=== PATIENT | female | born 1970 | race Caucasian/White ===

== ENCOUNTER 2024-01-29 09:28 | Outpatient (AMB) | payer BC, SELFPAY ==
--- NOTE | 2024-01-29 09:30 | MHC.PC.OV ---
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 Intake Note: New patient visit Machine Featheredger And Reducer Required: No Allergies dairy cultures Allergy (Unknown, Uncoded 01/29/24 09:31) Unknown diary Allergy (Unknown, Uncoded 01/29/24 09:31) Unknown Tobacco use date assessed: 01/29/24 Dental Screening Dental Screen Date: 01/29/24 Did you have a dental visit in the last 12 months?: Yes Did you have a dental problem in the last 6 months where you did not have access to dental care?: No Was dental information given to patient?: Patient has dentist HPI HPI Comments History of Present Illness Details The patient is a 53-year-old female presenting to establish care at the office. She transferred from my panel at [facility]. Regarding the recurrent skin cyst, the patient reports experiencing episodes intermittently over many years, with the current instance persisting for four days. Past interventions have included antibiotic treatment. There has been no indication of significant discharge at this time, but it remains uncomfortable, particularly when sitting. For sinus issues, the patient has experienced congestion and sinus infections (1 this year), with symptom exacerbation during periods of heightened allergies. She has been utilizing Zyrtec and Flonase intermittently for relief, though not concurrently. Hypertension is treated with amlodipine 5 mg daily. She has been using more sodium, and she admits she is not exercising. She has dense breast tissue that required additional mammography and ultrasound; a bilateral breat biopsy subsequently confirmed no malignancy. Past medical evaluations for the left arm lipoma revealed benign findings following removal. Patient has a history of hypothyroidism, but her TSH remained normal after stopping her medication more than a year ago. Patient was informed and verbally consented to the use of an ambient scribe for clinic note documentation during this visit. ROS: - General: Reports no general symptoms such as fever. - Dermatologic: Reports recurrent skin cyst with occasional discharge. - Respiratory: Reports nasal congestion and previous upper respiratory infection. - Musculoskeletal: Denies new joint pain or stiffness. - Cardiovascular: Denies chest pain or unusual dyspnea. 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 Constitutional: Alert, in no distress. Head: Normocephalic. Eyes: Pupils are equal, round and reactive to light. Extraocular muscles intact. Ear, Nose and Throat: Canals clear. TMs normal. Nasal mucosa mildly erythematous, inferior turbinates 2+ bilaterally. Neck: Supple, Full range of motion. No lymphadenopathy. Respiratory: Clear to auscultation. Cardiovascular: S1 S2 regular. No murmurs. Skin: mildly erythemaotus 1 cm cyst with pustular center on left buttock. Tender to palpation. [facility] Medical History (Updated 01/29/24 @ 10:30 by RINKU Dickerson) Dense breast tissue Infected cyst of skin Allergic rhinitis Hypothyroid Screening for cardiovascular condition Essential hypertension H/O mammogram Surgical History (Updated 01/29/24 @ 10:32 by RINKU Dickerson) History of biopsy History of colonoscopy Family History (Updated 01/29/24 @ 09:50 by Karin Hallman CMA) Mother Alzheimers disease Breast cancer Diabetes Heart disease HTN (hypertension) Mental disability Maternal Grandmother Alzheimers disease HTN (hypertension) Brother TBI (traumatic brain injury) Other FH: mental illness Social History (Updated 01/29/24 @ 09:50 by Karin Hallman CMA) Housing: House Alcohol intake: current Comment: rarely Patient Tobacco Use Status: Current everyday Tobacco user Cigarette Packs Per Day: 0.5 Years Smoked: 30 e-Cigarette/Vaping Use: Never Used Second Hand Smoke Exposure: No service: Yes Current occupational status: employed 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 1. Little interest or pleasure in doing things: not at all 2. Feeling down, depressed, or hopeless: not at all 3. Trouble falling or staying asleep, or sleeping too much: not at all 4. Feeling tired or having little energy: not at all 5. Poor appetite or overeating: not at all 6. Feeling bad about yourself - or that you are a failure or have let yourself or your family down: not at all 7. Trouble concentrating on things, such as reading the newspaper or watching television: not at all 8. Moving or speaking so slowly that other people could have noticed. Or the opposite - being so fidgety or restless that you have been moving around a lot more than usual: not at all 9. Thoughts that you would be better off or of hurting yourself in some way: not at all Total score: 0 Depression Screening Interpretation: Negative Depression Screening Done: Yes 22803 - PHQ-9 Billing: Yes Source: Developed by Drs. Everette Childress, Celena Kowalski, Javan Merino and colleagues, with an educational angus from [employer]. Thrive Questionnaire Date Thrive assessed: 01/29/24 I am a: Patient What is your living situation today?: I have a steady place to live Within the past 12 months, did the food you bought not last and you didn't have the money to get more?: Never true Within the past 12 months, did you worry whether your food would run out before you got money to buy more?: Never true Do you have trouble paying for medicines?: No Do you have trouble getting transportation to medical appointments?: No Do you have trouble paying your heating and electricity bill?: No Do you have trouble taking care of your child, family member or friend?: No Do you have trouble with day-to-day activities such as bathing, preparing meals, shopping, managing finances, etc.?: No Are you currently unemployed and looking for a job?: No Are you interested in more education?: No Please select the resources that you would like help with: None Currently or been in a relationship where the following occur: No concerns reported THRIVE Score: 0 AUDIT C Alcohol Use Questionnaire (AUDIT-C) 1. How often do you have a drink containing alcohol?: Monthly or less 2. How many drinks containing alcohol do you have on a typical day when you are drinking?: 1 or 2 3. How often do you have six or more drinks on one occasion?: Never Total Score: 1 ANNETTA-7 AMB Questionnaire ANNETTA-7 Date ANNETTA - 7 assessed: 01/29/24 Feeling nervous, anxious, or on edge: 0 = Not at all Not being able to stop or control worryin = Not at all Worrying too much about different things: 0 = Not at all Trouble relaxin = Not at all Being so restless that it is hard to sit still: 0 = Not at all Becoming easily annoyed or irritable: 0 = Not at all Feeling afraid as if something awful might happen: 0 = Not at all Total ANNETTA-7 score (0-4 normal; 5-9 mild; 10-14 moderate; 15-21 severe): 0 Source: Developed by Drs. Everette Childress, Celena Kowalski, Javan Merino and colleagues, with an educational angus from [employer]. ANNETTA-7 Assessment Billing ANNETTA-7 Assessment Tool: ANNETTA-7 Assessment 62069 Physical exam (Primary Care) Vital Signs: Last Vital Signs Pulse 104 H 01/29/24 09:50 BP 118/80 01/29/24 09:50 Pulse Ox 95 01/29/24 09:50 Oxygen Delivery Method Room Air 01/29/24 09:50 BMI result Body Mass Index 20.6 Tobacco/Smoking Status: Tobacco use Status Tobacco use date assessed 01/29/24 01/29/24 09:38 Patient Tobacco Use Status Current everyday Tobacco 01/29/24 09:53 e-Cigarette/Vaping Use Never Used 01/29/24 09:50 PHQ-9: PHQ-9 Score PHQ-9: Total score 0 01/29/24 10:14 Depression Screening Interpretation: Negative Thrive Assessment: Date of Thrive Assessment Date Thrive assessed 01/29/24 01/29/24 09:38 Currently or been in a relationship where the following occur: No concerns reported Coding Level of Care Code Est Pt Level 4 (28408) Complex EM visit Add On G2211 Diagnoses 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 (2) Essential hypertension: Code(s): I10 - Essential (primary) hypertension Category: Medical (3) Infected cyst of skin: Code(s): L72.9 - Follicular cyst of the skin and subcutaneous tissue, unspecified; L08.9 - Local infection of the skin and subcutaneous tissue, unspecified Category: Medical (4) Allergic rhinitis: Code(s): J30.9 - Allergic rhinitis, unspecified Category: Medical (5) Dense breast tissue: Code(s): R92.30 - Dense breasts, unspecified Category: Medical Plan 1. Essential Hypertension: Blood pressure is well-controlled on current medication. The patient is instructed to continue the antihypertensive regimen, with mindfulness towards dietary sodium reduction. 2. Recurrent Skin Cyst: Recurrence of skin cyst of left buttock being managed with doxycycline. Advised to complete the course. Referral placed for dermatologic consultation for cyst removal and skin exam. 3. Allergic rhinitis: Continue current management with Zyrtec and Flonase for symptomatic relief. Emphasized using both medications concurrently during periods of significant allergic response. Consideration for allergen testing and possible wrapping checker referral discussed. 4. Dense Breast Tissue: Previous mammogram, ultrasound, and biopsy evaluations confirmed negative for malignancy. Continue routine surveillance. Follow up in 6 months for a physical exam. Orders: Orders TSH reflex Free T4 Today E03.9 - Hypothyroidism, unspecified, I10 - Essential (primary) hypertension, J30.9 - Allergic rhinitis, unspecified, Z13.6 - Encounter for screening for cardiovascular disorders Complete Blood Count no Diff Today E03.9 - Hypothyroidism, unspecified, I10 - Essential (primary) hypertension, J30.9 - Allergic rhinitis, unspecified, Z13.6 - Encounter for screening for cardiovascular disorders Lipid Panel Today E03.9 - Hypothyroidism, unspecified, E78.5 - Hyperlipidemia, unspecified, I10 - Essential (primary) hypertension, J30.9 - Allergic rhinitis, unspecified, Z13.6 - Encounter for screening for cardiovascular disorders Comprehensive Met. Panel Today E03.9 - Hypothyroidism, unspecified, I10 - Essential (primary) hypertension, J30.9 - Allergic rhinitis, unspecified, Z13.6 - Encounter for screening for cardiovascular disorders Referrals Dermatology Referral Z12.83 - Encounter for screening for malignant neoplasm of skin Medications: New doxycycline hyclate 100 mg PO BID 20 tabs 0RF amlodipine 5 mg PO DAILY 90 tabs 3RF Patient Instructions: Diary free Culturelle daily probiotic
[2024-01-29 09:50] VITALS: BP 118/80; PULSE 104; O2SAT 95; BMI 20.6
== END 2024-01-29 10:25 | disposition home or self-care (01) ==
PROVIDERS: PCP Physician Assistant Medical; Visit Provider Physician Assistant Medical
DX: E06.3 Autoimmune thyroiditis (principal); I10 Essential (primary) hypertension; L72.9 Follicular cyst of the skin and subcutaneous tissue, unspecified; L08.9 Local infection of the skin and subcutaneous tissue, unspecified; J30.9 Allergic rhinitis, unspecified; R92.30 Dense breasts, unspecified

== ENCOUNTER → 2024-01-29 09:28 | Outpatient (BNVA) | payer BC, SELFPAY | PROVIDERS: PCP Physician Assistant Medical; Visit Provider Physician Assistant Medical | DX: E06.3 Autoimmune thyroiditis (principal); I10 Essential (primary) hypertension; L72.9 Follicular cyst of the skin and subcutaneous tissue, unspecified; L08.9 Local infection of the skin and subcutaneous tissue, unspecified; J30.9 Allergic rhinitis, unspecified; R92.30 Dense breasts, unspecified | CPT/HCPCS: 96127 ==

== ENCOUNTER 2024-05-02 08:38 | Outpatient (AMB) | payer BC, OTHER, SELFPAY ==
--- NOTE | 2024-05-02 08:53 | AM.OFFWIN_ITS ---
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 Patient Tobacco Use Status: Current everyday Tobacco user Allergies dairy cultures Allergy (Unknown, Uncoded 05/02/24 08:56) Unknown diary Allergy (Unknown, Uncoded 05/02/24 08:56) Unknown Do you need a note to return to daycare/school/sports/work: Yes HPI HPI Comments History of Present Illness Details 54 y/o female patient who presents to [facility] walk in clinic with c/o chest tightness, post nasal drip, runny nose, sneezing and coughing that started Monday. [facility] Medical History (Updated 05/02/24 @ 09:11 by Linda Nelson NP) Acute respiratory disease Dense breast tissue Infected cyst of skin Allergic rhinitis Hypothyroid Screening for cardiovascular condition Essential hypertension H/O mammogram Surgical History (Updated 01/29/24 @ 10:32 by RINKU Dickerson) History of biopsy History of colonoscopy Family History (Updated 01/29/24 @ 09:50 by Karin Hallman CMA) Mother Alzheimers disease Breast cancer Diabetes Heart disease HTN (hypertension) Mental disability Maternal Grandmother Alzheimers disease HTN (hypertension) Brother TBI (traumatic brain injury) Other FH: mental illness Social History (Updated 01/29/24 @ 09:50 by Krain Hallman CMA) Housing: House Alcohol intake: current Comment: rarely Patient Tobacco Use Status: Current everyday Tobacco user Cigarette Packs Per Day: 0.5 Years Smoked: 30 e-Cigarette/Vaping Use: Never Used Second Hand Smoke Exposure: No service: Yes Current occupational status: employed 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 Current occupational exposures/hazards: No Cognitive needs: No Hearing needs: No Vision needs: Yes (glasses) Review of Systems Const All systems reviewed & are unremarkable except as noted in HPI and below Physical Exam Vital Signs: Last Vital Signs Temp 98.1 F 05/02/24 08:55 Pulse 110 H 05/02/24 08:55 BP 118/70 05/02/24 08:55 Pulse Ox 99 05/02/24 08:55 Oxygen Delivery Method Room Air 05/02/24 08:55 Const General: cooperative and no acute distress Orientation/consciousness: patient oriented x3 HEENT Head: Yes normocephalic Ears: external ears normal and TM abnormal with fluid behind the TM bilateral General nose exam: No nasal discharge present Face and sinus: Yes sinuses nontender Mouth: moist mucous membranes Throat: Yes postnasal drainage Resp Effort & Inspection: normal respiratory effort and able to speak in complete sentences Auscultation: clear to auscultation bilaterally, no crackles, no rales, no rhonchi and no wheezes Cardio Heart sounds: S1 normal heart sound present and S2 normal heart sound present Neuro General: patient oriented x3 Assessment & Plan Assessment & Plan (1) Acute respiratory disease: Code(s): J06.9 - Acute upper respiratory infection, unspecified Plan: OTC cough remedies Ordered SARs Acetaminophne for pain relief. Rest and hydrate well with warm fluids. Orders: Orders SARS-CoV2/FLU/RSV Today J06.9 - Acute upper respiratory infection, unspecified Medications: New benzonatate 200 mg (2 x 100 mg) PO BID 60 caps 0RF J06.9 - Acute upper re spiratory infection, unspecified dextromethorphan-guaifenesin 5-100 mg/5 mL (Robitussin Cough-Chest Congestion DM) 10 mL PO Q4-8H PRN 1,000 mL 0RF cough J06.9 - Acute upper respiratory infection, unspecified Coding Level of Care Code New Pt Level 4 (10221) Diagnoses Acute respiratory disease J06.9 Time Spent (min) 20
[2024-05-02 08:55] VITALS: BP 118/70; PULSE 110; TEMP 36.7; O2SAT 99
== END 2024-05-02 09:25 | disposition home or self-care (01) ==
PROVIDERS: PCP Physician Assistant Medical; Visit Provider Nurse Practitioner Family
DX: J06.9 Acute upper respiratory infection, unspecified (principal)

== ENCOUNTER 2024-05-02 08:38 | Outpatient (REF) | payer BC, OTHER, SELFPAY ==
[2024-05-02 11:33] LABS: Influenza A PCR NEGATIVE (Negative); Influenza B PCR NEGATIVE (Negative); Resp Syncy Virus RNA Qual PCR NEGATIVE (Negative); SARS COV2 PCR INHOUSE NEGATIVE (Negative)
== END 2024-05-02 08:39 | disposition home or self-care (01) ==
LOC: HO.LAB 08:38
PROVIDERS: PCP Physician Assistant Medical; Visit Provider Nurse Practitioner Family
DX: J06.9 Acute upper respiratory infection, unspecified (principal)
CPT/HCPCS: 0241U

== ENCOUNTER 2024-07-08 08:35 | Outpatient (REF) | payer BC, OTHER, SELFPAY ==
[2024-07-08 10:38] LABS: Hematocrit 37.8 % (37.0-47.0); Mean Corpuscular HGB Conc 31.7 g/dl (31.0-35.0); Mean Corpuscular Hemoglobin 27.1 pg (27.0-33.0); Mean Corpuscular Volume 85.5 fL (80.0-98.0); Mean Platelet Volume 12.6 fL (9.4-12.3); Platelet Count 364 X10*3/uL (160-400); Red Blood Count 4.42 X10*6/uL (4.20-5.50); Red Cell Distribution Width 14.7 % (11.0-16.0); White Blood Count 8.2 X10*3/uL (4.8-10.8)
[2024-07-08 11:02] LABS: Alanine Aminotransferase 15 U/L (0-31); Albumin Level 4.2 g/dL (3.5-5.0); Alkaline Phosphatase 139 U/L (39-117); Anion Gap 12 (12-20); Aspartate Amino Transferase 29 U/L (5-31); Bilirubin Total 0.4 mg/dL (0.0-1.0); Blood Urea Nitrogen 10 mg/dL (9-16); Calcium 9.7 mg/dL (8.4-10.2); Carbon Dioxide 26 mmol/L (22-29); Chloride 104 mmol/L (96-108); Cholesterol 206 mg/dL (<200); Estimated Glomerular Filt Rate > 60; Glucose Random 95 mg/dL (60-115); HDL Cholesterol 49 mg/dL (>40); LDL Cholesterol Calculated 124 mg/dL (<100); Potassium 4.4 mmol/L (3.3-5.1); Sodium 138 mmol/L (135-145); Total Protein 8.3 g/dL (6.5-8.0); Triglycerides 167 mg/dL (<150)
[2024-07-08 11:03] LABS: TSH reflex Free T4 8.76 uIU/mL (0.32-4.0)
[2024-07-08 12:58] LABS: Free T4 (Free Thyroxine) 0.97 ng/dL (0.71-1.85)
== END 2024-07-08 08:36 | disposition home or self-care (01) ==
LOC: HO.HMGCLDS 08:35
PROVIDERS: PCP Physician Assistant Medical; Visit Provider Physician Assistant Medical
DX: I10 Essential (primary) hypertension (principal); Z13.6 Encounter for screening for cardiovascular disorders; E03.9 Hypothyroidism, unspecified; J30.9 Allergic rhinitis, unspecified; E78.5 Hyperlipidemia, unspecified
CPT/HCPCS: 36415; 80053; 80061; 84439; 84443; 85027

== ENCOUNTER 2024-08-05 08:22 | Outpatient (AMB) | payer BC, OTHER, SELFPAY ==
--- NOTE | 2024-08-05 08:24 | A.OFFPC_ITS ---
Vital Signs 08/05/24 08:31 Height 5 ft 6.5 in Weight 124 lb 2 oz BMI 19.7 BP 106/68 Blood Pressure Location Rt brachial Position Sitting Pulse 86 Pulse Source Pulse Oximeter Temp 97.4 F Temp Source Temporal Artery Scan Pulse Oximetry (%) 99 Oxygen Delivery Method Room Air Intake Visit Reasons: CPE Intake Note: Kinza presents in the office today for her annual physical. Allergies Seasonal Allergies Allergy (Verified 08/05/24 08:29) Congestion dairy cultures Allergy (Unknown, Uncoded 08/05/24 08:29) Unknown diary Allergy (Unknown, Uncoded 05/02/24 08:56) Unknown Tobacco use date assessed: 08/05/24 Dental Screening Dental Screen Date: 08/05/24 Did you have a dental visit in the last 12 months?: Yes Did you have a dental problem in the last 6 months where you did not have access to dental care?: Yes Was dental information given to patient?: Patient has dentist HPI HPI Comments History of Present Illness Details The patient is a 54-year-old female with a past medical history of hypertension and hypothyroidism presenting for a physical exam. She is treating allergies with Zyrtec and Flonase which alleviate symptoms. Hypertension is treated with amlodipine 5 mg daily. This is well-controlled. She has dense breast tissue that required additional mammography and ultrasound; a bilateral breast biopsy subsequently confirmed no malignancy. She reports she is up to date with imaging at [facility]. She is up to with colonoscopy at at [facility]. It was normal, and she was told repeat this in ten years. Past medical evaluations for the left arm lipoma revealed benign findings fo llowing removal. Patient has a history of hypothyroidism, but her TSH remained normal after stopping her medication more than a year ago. Her TSH was elevated at 8.76 in June. She was instructed to repeat it. She endorses hair thinning for the past month. It is making her self-conscious. Patient's alkaline phosphatase was also mildly elevated at 139. AST and ALT normal. Free T4 normal. She does not take a multivitamin or vitamin-D supplement. She has been under more stress because she is planning to retire at the end of the month. She has smoked a half a pack per day for the past 30 years. She is not ready to quit yet, but she would like some thinks she can use when she goes to an event that does not allow smoking so she does not get nicotine withdrawal symptoms. ROS: Constitutional: No unexplained weight loss, fever, chills, fatigue or night sweats. Eyes: No vision changes, blurry vision, double vision, eye pain, eye redness, eye discharge. ENT: No hearing loss, sneezing, congestion, runny nose or sore throat. Respiratory: No shortness of breath, cough or sputum production. Cardiovascular: No chest pain, chest pressure or chest discomfort. No palpi tations or pedal edema. Gastrointestinal: No anorexia, nausea, vomiting or diarrhea. No abdominal pain or blood in stool. Genitourinary: No dysuria, hematuria, urinary frequency. Neurologic: No headache, dizziness, syncope, unilateral weakness, ataxia, numbness or tingling in the extremities. Musculoskeletal: No muscle pain, back pain, joint pain or swelling. Hematologic/Lymphatics: No bleeding or bruising. No painful lymph nodes. Skin: No rash Endocrine: No cold or heat intolerance. No polyuria or polydipsia. Psychiatric: No depression or anxiety. No SI/HI. Physical exam: Constitutional: Alert, in no distress. Head: Normocephalic. Eyes: Pupils are equal, round and reactive to light. Extraocular muscles intact. Ear, Nose and Throat: Canals clear. TMs normal. Normal nasal mucosa. No nasal discharge. No oral lesions. Neck: Supple, Full range of motion. No lymphadenopathy. No palpable thyroid masses. Respiratory: Clear to auscultation. Cardiovascular: S1 S2 regular. No murmurs. No carotid bruits. Gastrointestinal: Abdomen soft, non-tender, non-distended. Normal bowel sounds. No palpable masses. Neurologic: No focal neurological deficits. Symmetric patellar reflexes. Moves all extremities spontaneously. Sensation intact bilaterally. Skin: No rashes Scalp: No redness or rashes. Hair thinning at the crown. Musculoskeletal: No gross deformities. Normal range of motion. Extremities: Warm and well perfused. No clubbing, cyanosis or edema. Intact peripheral pulses bilaterally. Psychiatric: Normal mood and affect [facility] Medical History (Updated 08/05/24 @ 09:12 by RINKU Dickerson) Tobacco use disorder Routine physical examination Familial tremor Elevated alkaline phosphatase level Acute respiratory disease Dense breast tissue Infected cyst of skin Allergic rhinitis Hypothyroid Screening for cardiovascular condition Essential hypertension H/O mammogram Surgical History (Updated 01/29/24 @ 10:32 by RINKU Dickerson) History of biopsy History of colonoscopy Family History Mother Alzheimers disease Breast cancer Diabetes Heart disease HTN (hypertension) Mental disability Maternal Grandmother Alzheimers disease HTN (hypertension) Brother TBI (traumatic brain injury) Other FH: mental illness Social History (Updated 08/05/24 @ 08:31 by Joleen Donohue MA) Housing: House Alcohol intake: current Comment: rarely Patient Tobacco Use Status: Current everyday Tobacco user Cigarette Packs Per Day: 0.5 Years Smoked: 30 e-Cigarette/Vaping Use: Never Used Second Hand Smoke Exposure: No service: Yes Current occupational status: employed 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 1. Little interest or pleasure in doing things: not at all 2. Feeling down, depressed, or hopeless: not at all 3. Trouble falling or staying asleep, or sleeping too much: several days 4. Feeling tired or having little energy: several days 5. Poor appetite or overeating: not at all 6. Feeling bad about yourself - or that you are a failure or have let yourself or your family down: not at all 7. Trouble concentrating on things, such as reading the newspaper or watching television: not at all 8. Moving or speaking so slowly that other people could have noticed. Or the opposite - being so fidgety or restless that you have been moving around a lot more than usual: not at all 9. Thoughts that you would be better off or of hurting yourself in some way : not at all Total score: 2 Depression Screening Interpretation: Negative Depression Screening Done: Yes 94826 - PHQ-9 Billing: Yes Source: Developed by Drs. Everette Childress, Celena Kowalski, Javan Merino and colleagues, with an educational angus from [employer]. Thrive Questionnaire Date Thrive assessed: 08/05/24 I am a: Patient What is your living situation today?: I have a steady place to live Within the past 12 months, did the food you bought not last and you didn't have the money to get more?: Never true Within the past 12 months, did you worry whether your food would run out before you got money to buy more?: Never true Do you have trouble paying for medicines?: No Do you have trouble getting transportation to medical appointments?: No Do you have trouble paying your heating and electricity bill?: No Do you have trouble taking care of your child, family member or friend?: No Do you have trouble with day-to-day activities such as bathing, preparing meals, shopping, managing finances, etc.?: No Are you currently unemployed and looking for a job?: No Are you interested in more education?: No Please select the resources that you would like help with: None Currently or been in a relationship where the following occur: No concerns reported THRIVE Score: 0 AUDIT C Alcohol Use Questionnaire (AUDIT-C) 1. How often do you have a drink containing alcohol?: 2-4 times a month 2. How many drinks containing alcohol do you have on a typical day when you are drinking?: 1 or 2 3. How often do you have six or more drinks on one occasion?: Never Total Score: 2 ANNETTA-7 AMB Questionnaire ANNETTA-7 Date ANNETTA - 7 assessed: 08/05/24 Feeling nervous, anxious, or on edge: 1 = Several days Not being able to stop or control worryin = Not at all Worrying too much about different things: 0 = Not at all Trouble relaxin = Not at all Being so restless that it is hard to sit still: 0 = Not at all Becoming easily annoyed or irritable: 0 = Not at all Feeling afraid as if something awful might happen: 0 = Not at all Total ANNETTA-7 score (0-4 normal; 5-9 mild; 10-14 moderate; 15-21 severe): 1 Source: Developed by Drs. Everette Childress, Celena Kowalski, Javan Merino and colleagues, with an educational angus from [employer]. ANNETTA-7 Assessment Billing ANNETTA-7 Assessment Tool: ANNETTA-7 Assessment 94729 Physical exam (Primary Care) Vital Signs: Last Vital Signs Temp 97.4 F 08/05/24 08:31 Pulse 86 08/05/24 08:31 BP 106/68 08/05/24 08:31 Pulse Ox 99 08/05/24 08:31 Oxygen Delivery Method Room Air 08/05/24 08:31 BMI result Body Mass Index 19.7 Tobacco/Smoking Status: Tobacco use Status Tobacco use date assessed 08/05/24 08/05/24 08:37 Patient Tobacco Use Status Current everyday Tobacco 08/05/24 08:31 e-Cigarette/Vaping Use Never Used 08/05/24 08:31 PHQ-9: PHQ-9 Score PHQ-9: Total score 2 08/05/24 08:25 Depression Screening Interpretation: Negative Thrive Assessment: Date of Thrive Assessment Date Thrive assessed 08/05/24 08/05/24 08:25 Currently or been in a relationship where the following occur: No concerns reported Coding Level of Care Code Est Pt Prev Care 40-64y(77229) Diagnoses Elevated alkaline phosphatase level R74.8 Essential hypertension 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 Check GGTP, alkaline phosphatase isoenzymes and vitamin-D. (2) Essential hypertension: Code(s): I10 - Essential (primary) hypertension Category: Medical Plan: Continue amlodipine. Recommended low-sodium diet, avoidance of caffeine and smoking cessation. 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 If this is still elevated recommend trial of levothyroxine given new symptom of hair thinning. (4) Tobacco use disorder: Code(s): F17.200 - Nicotine dependence, unspecified, uncomplicated Category: Medical Plan: She does not qualify for LDCT. Recommended smoking cessation, but she is not prepared to quit. I prescribed patches that she can use when she has an event where smoking is not allowed. Advised not to smoke cigarettes when she is using the patch. Side effects reviewed. (5) Routine physical examination: Code(s): Z00.00 - Encounter for general adult medical examination without abnormal findings Category: Medical Plan: Patient is seen today for a routine physical. As part of this visit we reviewed the following issues, which are considered and essential part of preventative health in this age group: - Breast Cancer screening - Annual Veterinary Radiologist exam - Screening for colon cancer - Blood pressure screening - Cholesterol screening - Osteoporosis prevention including calcium/vitamin D intake, weight bearing exercise & smoking cessation - Nutritional and exercise counseling - Counseling of injury prevention including fire prevention, smoke alarms and seat belt usage - Screening for depression - Education about skin cancer - Recommendations about immunizations - Recommendation of an eye exam - Screening for substance abuse Plan Follow up in 6 months for hypertension. Orders: Orders Gamma Glutamyl Transpeptidase Today R74.8 - Abnormal levels of other serum enzymes Medications: New nicotine (Nicoderm CQ) 1 patch transdermal DAILY 28 ea 0RF
[2024-08-05 08:31] VITALS: BP 106/68; PULSE 86; TEMP 36.3; O2SAT 99; BMI 19.7
== END 2024-08-05 09:09 | disposition home or self-care (01) ==
LOC: HO.HMCFM 08:23
PROVIDERS: PCP Physician Assistant Medical; Visit Provider Physician Assistant Medical
DX: R74.8 Abnormal levels of other serum enzymes (principal); I10 Essential (primary) hypertension; E06.3 Autoimmune thyroiditis; F17.200 Nicotine dependence, unspecified, uncomplicated; Z00.00 Encounter for general adult medical examination without abnormal findings

== ENCOUNTER → 2024-08-05 08:22 | Outpatient (BNVA) | payer BC, OTHER, SELFPAY | PROVIDERS: PCP Physician Assistant Medical; Visit Provider Physician Assistant Medical | DX: Z00.00 Encounter for general adult medical examination without abnormal findings (principal); R74.8 Abnormal levels of other serum enzymes; I10 Essential (primary) hypertension; E06.3 Autoimmune thyroiditis; F17.210 Nicotine dependence, cigarettes, uncomplicated; Z79.899 Other long term (current) drug therapy; Z13.31 Encounter for screening for depression; Z13.30 Encounter for screening examination for mental health and behavioral disorders, unspecified | CPT/HCPCS: 96127 ==

== ENCOUNTER 2024-08-05 09:21 | Outpatient (REF) | payer BC, OTHER, SELFPAY ==
[2024-08-05 11:39] LABS: Alkaline Phosphatase 142 U/L (39-117); Gamma Glutamyl Transpeptidase 50 U/L (7-33)
[2024-08-05 11:53] LABS: TSH reflex Free T4 6.13 uIU/mL (0.32-4.0)
[2024-08-05 12:42] LABS: Free T4 (Free Thyroxine) 0.97 ng/dL (0.71-1.85)
[2024-08-08 21:23] LABS: Alk.Phos Iso. Macrohepatic 0 % (<=0); Alk.Phos Isoenzymes Bone 53 % (28-66); Alk.Phos Isoenzymes Intest 6 % (1-24); Alk.Phos Isoenzymes Liver 41 % (25-69); Alk.Phos Isoenzymes Placental 0 % (<=0); Alk.Phos Isoenzymes Total 136 U/L (37-153)
[2024-08-10 16:07] LABS: Vitamin D 25-OH, D2 <4 ng/mL; Vitamin D 25-OH, D3 16 ng/mL; Vitamin D 25-OH, Total 16 ng/mL (30-100)
== END 2024-08-05 09:22 | disposition home or self-care (01) ==
LOC: HO.WFDLDS 09:21
PROVIDERS: Visit Provider Physician Assistant Medical
DX: R74.8 Abnormal levels of other serum enzymes (principal); E06.3 Autoimmune thyroiditis
CPT/HCPCS: 36415; 82306; 82977; 84075; 84080; 84439; 84443

== ENCOUNTER 2024-10-03 11:08 | Outpatient (REF) | payer BC, OTHER, SELFPAY ==
--- NOTE | ~2024-10-03 | US_ITS ---
EXAMINATION: US ABDOMEN LIMITED WITH LIVER ELASTOGRAPHY HISTORY: R74.8 - Abnormal levels of other serum enzymes TECHNIQUE: Real-time grayscale ultrasound imaging of the right upper quadrant was performed and images were reviewed. COMPARISON: There are no prior studies available for comparison. FINDINGS: Liver: The right lobe of the liver measures 13.0 cm in size. The left lobe of the liver measures 10.4 cm in size. The liver demonstrates normal homogeneous echotexture. No focal mass or intrahepatic biliary ductal dilatation is identified. There is normal hepatopedal flow in the portal vein. Ultrasound elastography of the liver was performed with 10 separate measurements of the liver parenchyma with the patient in the supine position. Measurements were obtained approximately 2 cm below Leonidas's capsule and perpendicular to the capsule. The median shear wave velocity is 1.36 m/s. The interquartile range/median (IQR/median) is 0.04. Gallbladder and biliary tree: Multiple shadowing calculi are noted in the gallbladder. There is no wall thickening or pericholecystic fluid. There is no sonographic Tinoco sign. The common bile duct is normal in caliber measuring 5 mm. Right Kidney: The right kidney measures 11.8 cm in length. The right kidney is unremarkable, without evidence of masses, hydronephrosis, or calculi. Pancreas: The pancreatic head, neck, and body are unremarkable. The pancreatic tail is obscured by bowel gas. Abdominal aorta and inferior vena cava: The visualized portions of the abdominal aorta and inferior vena cava are normal in caliber. There is no free fluid in the right upper quadrant. US/US abdomen house w elastography IMPRESSION: Cholelithiasis. Otherwise unremarkable right upper quadrant ultrasound. The median shear wave velocity in the liver is 1.36 m/s, corresponding to a median liver stiffness of 5.53 kPa. The IQR/median value is 0.06. This is indicative of a quality data set. Findings are indicative of a low elastography value which rules out advanced chronic liver disease in asymptomatic patients. REFERENCE: Society of Radiologists in Ultrasound Liver Stiffness Thresholds (2020): LIVER STIFFNESS THRESHOLDS: *Shear wave velocity less than 1.3 m/s (Liver Stiffness equal or less than 5 kPa): High probability of being normal. *Shear wave velocity less than 1.7 m/s (Liver Stiffness less than 9 kPa): In the absence of other known clinical signs, rules out compensated advanced chronic liver disease. *Shear wave velocity between 1.7-2.1 m/s (Liver Stiffness 9-13 kPa): Suggestive of compensated advanced chronic liver disease but need further test for confirmation. *Shear wave velocity between 2.1-2.4 m/s (Liver Stiffness 13-17 kPa): Rules in compensated advanced chronic liver disease. *Shear wave velocity greater than 2.4 m/s (Liver Stiffness over 17 kPa): Suggestive of clinically significant portal hypertension. QUALITY OF DATA SET: *IQR/Median value equal or less than 0.15 implies a quality data set. *IQR/Median value over 0.15 implies a poor quality data set. SIGNIFICANT CHANGE FROM PRIOR EXAM: Significant change if liver stiffness measurement is 10% or greater from prior exam. OTHER CONSIDERATIONS: The stage of liver fibrosis may be overestimated in the setting of acute hepatitis, liver inflammation, elevated liver function tests, hepatic vascular congestion, obstructive cholestasis, non-fasting state, and infiltrative diseases such as amyloidosis and lymphoma. In some patients with NAFLD, the liver stiffness thresholds for compensated advanced chronic liver disease may be lower. In causes other than viral hepatitis and NAFLD, liver stiffness thresholds are not well established. Electronically signed by: Everette Kent MD 10/03/2024 11:53 AM EDT
--- OUTSIDE RECORDS SUMMARY | 2024-10-03 12:16 | XMS_ITS | Clinical Summary ---
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 Not on alesia e 11/07/2022 Are you concerned about learning? Not on file 11/07/2022 No 11/07/2022 No 11/07/2022 Digital Access Answer Date Recorded No 11/07/2022 No 11/07/2022 Reliable internet access at home? Not on file 11/07/2022 Device with a working camera? Not on file Comments Unknown Sex and Gender Information Value Date Recorded Sex Assigned at Not on file Legal Sex Female 12:31 PM EDT Gender Identity Not on file Sexual Orientation Not on file Last Filed Vital Signs Vital Sign Reading Time Taken Comments Blood Pressure 136/88 11/07/2022 12:59 PM EDT Pulse 83 11/07/2022 12:59 PM EDT Temperature 37.2 C (98.9 F) 11/07/2022 12:59 PM EDT Respiratory Rate 16 11/07/2022 12:59 PM EDT Oxygen Saturation 99% 11/07/2022 12:59 PM EDT Inhaled Oxygen Concentration - - Weight 55.3 kg (122 lb) 11/07/2022 12:59 PM EDT per pt Height - - Body Mass Index - - Plan of Treatment Health Maintenance Due Date Last Done Comments LIPID PANEL 1970 DEPRESSION SCREENING 1982 SMOKING Hx and SMOKELESS TOBACCO SCREENING 1983 HEPATITIS C SCREENING 02/10/1988 HIV ONE-TIME SCREENING (18-6 5 YEARS) 02/10/1988 PNEUMOCOCCAL VACCINES (50+ years) (1 of 2 - PCV) 1989 PAP SMEAR 1991 MAMMOGRAM 2010 COLOGUARD 2015 COLONOSCOPY 2015 COLORECTAL CANCER SCREENING 2015 FIT TEST 2015 FOBT 2015 SIGMOIDOSCOPY 2015 VIRTUAL COLONOSCOPY 2015 ZOSTER VACCINES (1 of 2) 02/10/2020 COVID-19 VACCINE (4 - 2023-2 5 season) 2023 01/22/2021, 06/05/2020, 05/08/2020 Adult Td,Tdap Booster 02/20/2027 02/20/2017 HEPATITIS A VACCINES Aged Out No long er eligible based on patient's age to complete this topic HIB VACCINES Aged Out No longer eligi ble based on patient's age to complete this topic MENINGOCOCCAL VACCINES (ACWY) Aged Out No longer eligible based on patient's age to complete this topic MENINGOCOCCAL VACCINES (B) Aged Out N o longer eligible based on patient's age to complete this topic Medical Devices Not on file [place] [address] [place] [address] [place] [address] [place] [address] [place] [address] [place] [address] Care Teams Fat Purification 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 It is not the complete legal health record.Merged With [facility]
== END 2024-10-03 11:09 | disposition home or self-care (01) ==
LOC: HO.US 11:08
PROVIDERS: PCP Physician Assistant Medical; Visit Provider Physician Assistant Medical
DX: R74.8 Abnormal levels of other serum enzymes (principal)
CPT/HCPCS: 76705; 76981

== ENCOUNTER → 2024-10-03 11:10 | Outpatient (BNV) | payer BC, OTHER, SELFPAY | PROVIDERS: PCP Physician Assistant Medical; Visit Provider Radiology Diagnostic Radiology | DX: K80.80 Other cholelithiasis without obstruction (principal) | CPT/HCPCS: 76705 ==

== ENCOUNTER 2025-01-20 13:41 | Outpatient (AMB) | payer BC, OTHER, SELFPAY ==
--- NOTE | 2025-01-20 13:45 | MHC.PC.OV ---
Vital Signs 01/20/25 13:50 Height 5 ft 6.5 in Weight 127 lb 4 oz BMI 20.2 BP 112/62 Blood Pressure Location Rt brachial Position Sitting Respiration 16 Pulse 97 Pulse Source Pulse Oximeter Temp 98.5 F Temp Source Temporal Artery Scan Pulse Oximetry (%) 98 Oxygen Delivery Method Room Air Intake Visit Reasons: ED Follow-up /[facility] /01/11 Intake Note: Kinza presents in the office today for a ED follow up from 01/11/2025. Electrical Panel Builder Required: No Post menopausal: Yes Allergies Seasonal Allergies Allergy (Verified 01/20/25 13:48) Congestion dairy cultures Allergy (Unknown, Uncoded 01/20/25 13:48) Unknown diary Allergy (Unknown, Uncoded 01/20/25 13:48) Unknown Tobacco use date assessed: 01/20/25 Dental Screening Dental Screen Date: 01/20/25 Did you have a dental visit in the last 12 months?: Yes Did you have a dental problem in the last 6 months where you did not have access to dental care?: No Was dental information given to patient?: Patient has dentist HPI HPI Comments History of Present Illness Details 54-year-old female with a past medical history of vitamin-D deficiency, tobacco use disorder, hypothyroidism and hypertension presents for ER follow up. Her has been is with her. I reviewed emergency medicine records from 01/11/2025 at [facility] indicating patient may have had a vasovagal episode. She was brought in by ambulance from a hockey game for dizziness and possible syncope. She had not slept well the night before. She had not felt well during the day, and felt like a migraine was coming on so she took Excedrin. She was standing at the game when she began to feel overheated and dizzy. She sat down for a bit and then stood up again and felt dizzy again so she sat back down. She got tunnel vision, and she thinks she may have lost consciousness for a second (she does not recall her going to get help, but she did not actually fall). The episode lasted about 20 minutes and resolved. She noted she ate and drank normally that day though she does only drank coffee and soda. She consumed half a beer at the game. This has happened on 2 other occasions when she saw blood in the past. Her vitals were unremarkable aside from hypertension, 160/111. White blood cell count was mildly elevated at 12,800, hemoglobin 11.3, MCH 26.3, MCHC 31.3. Glucose normal at 115. Negative high sensitivity troponin. EKG showed normal sinus rhythm. She was discharged home. It has not happened again since. She denies chest pain, shortness of breath, palpitations, headaches, vision changes, numbness, tingling, weakness. Hypertension is treated with amlodipine 5 mg daily. Her blood pressure today is normal at 112/62. She has a history of low vypiael-N-bsm completed 12 week course in his taking 7200-4693 IU daily, but she does not take it consistently. Hypothyroidism is treated with levothyroxine 50 mcg daily. Last TSH was mildly elevated. She is due to repeat this. She has had nasal itching, runny nose and body itching that is more noticeable now that she is home all the time since group home. She has cats, and she is questioning whether or not she is allergic to them. She takes Zyrtec, but she has been on it for very long time. She takes Benadryl which alleviates symptoms temporarily. ROS: Constitutional: No unexplained weight loss, fever, chills, fatigue or night sweats. Eyes: No vision changes, blurry vision, double vision ENT: No hearing loss, tinnitus, sore throat, sinus pain. +rhinitis Respiratory: No shortness of breath, cough or sputum production. Cardiovascular: No chest pain, chest pressure or chest discomfort. No palpitations or pedal edema. Gastrointestinal: No anorexia, nausea, vomiting or diarrhea. No abdominal pain or blood in stool. Genitourinary: No dysuria, hematuria, urinary frequency. Neurologic: No headaches, seizures, speech changes, numbness, tingling, weakness are further episodes of near-syncope or syncope. There is a history of essential tremor. Hematologic/Lymphatics: No bleeding or bruising. Skin: No rash Endocrine: No cold or heat intolerance. No polyuria or polydipsia. Physical exam: Constitutional: Alert, in no distress. Eyes: Pupils are equal, round and reactive to light. Extraocular muscles intact. Ear, Nose and Throat: Canals clear. TMs normal. Normal nasal mucosa. No nasal discharge. No oral lesions. Neck: Supple, Full range of motion. No lymphadenopathy. No palpable thyroid masses. Respiratory: Clear to auscultation. Cardiovascular: S1 S2 regular. No murmurs. No carotid bruits. Gastrointestinal: Abdomen soft, non-tender, non-distended. Normal bowel sounds. No palpable masses. Neurologic:?Alert and oriented x 3, no focal deficits observed, CN 2-12 intact, [id number] normal, sensation equal and symmetric, strength UE and LE 5/5 bilaterally, reflexes equal and symmetric.? Normal gait.? Patient able to heel walk, toe walk and walk heel-to-toe across the floor.? No pronator drift.? Negative Romberg. Essential tremor noted. Skin: No rashes Musculoskeletal: No gross deformities. Normal range of motion. Extremities: Warm and well perfused. No clubbing, cyanosis or edema. Intact peripheral pulses bilaterally Psychiatric: Normal mood and affect [facility] Medical History (Updated 01/21/25 @ 09:01 by RINKU Dickerson) Vasovagal near-syncope Itch Gallstones Elevated serum gamma-glutamyl transferase level Vitamin D deficiency Tobacco use disorder Routine physical examination Familial tremor Elevated alkaline phosphatase level Acute respiratory disease Dense breast tissue Infected cyst of skin Allergic rhinitis Hypothyroid Screening for cardiovascular condition Essential hypertension H/O mammogram Surgical History (Updated 01/29/24 @ 10:32 by RINKU Dickerson) History of biopsy History of colonoscopy Family History Mother Alzheimers disease Breast cancer Diabetes Heart disease HTN (hypertension) Mental disability Maternal Grandmother Alzheimers disease HTN (hypertension) Brother TBI (traumatic brain injury) Other FH: mental illness Social History (Updated 01/20/25 @ 13:50 by Joleen Donohue CMA) Housing: House Alcohol intake: current Comment: rarely Patient Tobacco Use Status: Current everyday Tobacco user Cigarette Packs Per Day: 0.5 Years Smoked: 30 Packs Per Year: 15 e-Cigarette/Vaping Use: Never Used Second Hand Smoke Exposure: No Use of substances other than those prescribed or required for medical reasons: No service: Yes Current occupational status: employed 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 Current occupational exposures/hazards: No Cognitive needs: No Hearing needs: No Vision needs: Yes (glasses) Questionnaire Thrive Questionnaire Date Thrive assessed: 08/02/24 I am a: Patient What is your living situation today?: I have a steady place to live Within the past 12 months, did the food you bought not last and you didn't have the money to get more?: Never true Within the past 12 months, did you worry whether your food would run out before you got money to buy more?: Never true Do you have trouble paying for medicines?: No Do you have trouble getting transportation to medical appointments?: No Do you have trouble paying your heating and electricity bill?: No Do you have trouble taking care of your child, family member or friend?: No Do you have trouble with day-to-day activities such as bathing, preparing meals, shopping, managing finances, etc.?: No Are you currently unemployed and looking for a job?: No Are you interested in more education?: No Please select the resources that you would like help with: None Currently or been in a relationship where the following occur: No concerns reported THRIVE Score: 0 ANNETTA-7 AMB Questionnaire ANNETTA-7 Date ANNETTA - 7 assessed: 08/05/24 Source: Developed by Drs. Everette Childress, Celena Kowalski, Javan Merino and colleagues, with an educational angus from [employer]. Physical exam (Primary Care) Vital Signs: Last Vital Signs Temp 98.5 F 01/20/25 13:50 Pulse 97 01/20/25 13:50 Resp 16 01/20/25 13:50 BP 112/62 01/20/25 13:50 Pulse Ox 98 01/20/25 13:50 Oxygen Delivery Method Room Air 01/20/25 13:50 BMI result Body Mass Index 20.2 Tobacco/Smoking Status: Tobacco use Status Tobacco use date assessed 01/20/25 01/20/25 13:53 Patient Tobacco Use Status Current everyday Tobacco 01/20/25 13:50 e-Cigarette/Vaping Use Never Used 01/20/25 13:50 Thrive Assessment: Date of Thrive Assessment Date Thrive assessed 08/02/24 01/20/25 13:47 Currently or been in a relationship where the following occur: No concerns reported Coding Level of Care Code Est Pt Level 4 (13357) Complex visit Add On G2211 Diagnoses Vasovagal near-syncope R55 Essential hypertension I10 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 We discussed the importance of staying well hydrated. She can try an electrolyte beverage like Pedialyte or Gatorade during the day. If she starts to feel an episode coming on she should try to sit down or lay down if possible and place an ice pack on her neck or/cold water on her face or drink a cold drink. If she has more frequent episodes or changes in symptoms I would recommend further evaluation. (2) Essential hypertension: Code(s): I10 - Essential (primary) hypertension Category: Medical Plan: Continue amlodipine. Increase fluid intake. (3) Hypothyroid: Code(s): E03.9 - Hypothyroidism, unspecified Category: Medical Qualifiers: Hypothyroidism type: due to Makayla's thyroiditis Qualified Code(s): E06.3 - Autoimmune thyroiditis Plan: Continue levothyroxine. Check TSH. (4) Vitamin D deficiency: Code(s): E55.9 - Vitamin D deficiency, unspecified Category: Medical Plan: Check vitamin-D level. (5) Allergic rhinitis: Code(s): J30.9 - Allergic rhinitis, unspecified Category: Medical Plan: Patient should alternate oral antihistamines such as Tabitha, Claritin, Zyrtec every few months. She can use saline nasal spray or Flonase as needed. She is interested in allergy testing. Referred to Allergy and immunology. Plan She has a physical exam scheduled for follow up. Orders: Orders Cat Dander (e1) IgE 01/20/25 L29.9 - Pruritus, unspecified Referrals Allergy & Immunology Referral J30.9 - Allergic rhinitis, unspecified, L29.9 - Pruritus, unspecified Medications: Discontinued cholecalciferol (vitamin D3) Discontinued Reason: Doctor's Order 1,250 mcg PO QWEEK 12 weeks 12 caps 0RF
[2025-01-20 13:50] VITALS: BP 112/62; PULSE 97; RESP 16; TEMP 36.9; O2SAT 98; BMI 20.2
--- OUTSIDE RECORDS SUMMARY | 2025-01-20 17:14 | XMS_ITS | Clinical Summary ---
Author Organization [facility] Address [address] [place], [place] [id number] Phone Care Team Providers Care Form Presser Name Role Phone Pcp, Unknown Primary Care [...] 2015 ZOSTER VACCINES (1 of 2) 02/10/2020 INFLUENZA VACCINE (#1) 2024 03/07/2018 COVID-19 VACCINE ( - 2024-2 6 season) 2024 01/22/2021, 06/05/2020, 05/08/2020 Adult Td,Tdap Booster 02/20/2027 02/20/2017 RSV VACCINE (1 - 1-dose 75+ series) 2045 HEPATITIS A VACCINES Aged Out No long [...] topic Medical Devices Not on [place] [address] [place] [address] [employer] [facility] [place] [address] [place] [address] [employer] [facility] [employer] [facility] [employer] [facility] Care Teams Form Presser Relationship Specialty Start Date End Date Pcp, Unknown PCP - General 11/07/22 Additional Source Comments The information contained in this document represents components of the legal health record. It is not the complete legal health record.[facility]
== END 2025-01-20 14:26 | disposition home or self-care (01) ==
LOC: HO.HMCFM 13:42
PROVIDERS: PCP Physician Assistant Medical; Visit Provider Physician Assistant Medical
DX: R55 Syncope and collapse (principal); I10 Essential (primary) hypertension; E06.3 Autoimmune thyroiditis; E55.9 Vitamin D deficiency, unspecified; J30.9 Allergic rhinitis, unspecified

== ENCOUNTER 2025-01-20 13:41 | Outpatient (REF) | payer BC, OTHER, SELFPAY ==
--- OUTSIDE RECORDS SUMMARY | 2025-01-20 17:47 | XMS_ITS | Clinical Summary ---
Author Organization [address] [facility] Address [address] [place] [address] Phone Care Team Providers Care Hotel Maintenance Engineer Name Role Phone Adelina Gunn Primary Care Provider [phone] Allergies Active Allergy Reactions Criticality Noted Date Comments Cheese Nausea And Vomiting 12/10/2024 Grass Pollen 12/10/2024 Medications amLODIPine (NORVASC) 5 mg tablet Take 1 tablet (5 mg total) by mouth 1 (one) time each day. 5 Active cholecalciferol (VITAMIN D-3) 1,250 mcg (50,000 unit) capsule take one capsule by mouth one day a week 5 Active levothyroxine (SYNTHROID, LEVOTHROID) 50 mcg tablet Take 1 tablet (50 mcg total) by mouth 1 (one) time each day. 5 Active cetirizine (ZyrTEC) 10 mg tablet Take 1 tablet (10 mg total) by mouth 1 (one) time each day. Active fluticasone propionate (FLONASE) 50 mcg/actuation nasal spray Administer 1 spray into each nostril 1 (one) time each day. Shake gently. Before first use, prime pump. After use, clean tip and replace cap. Active nicotine (NICODERM CQ) 21 mg/[address] 1 patch on the skin 1 (one) time each day at the same time. Active Active Problems Problem Noted Date Diagnosed Date Calculus of gallbladder with out cholecystitis without obstruction 12/10/2024 Encounters Date Type Department Care Team Description 12/10/2024 4:00 PM EDT Consult General Surgery [facility] [address] [phone] Jostin Kenyon MD Calculus of gallbladder without cholecystitis without obstruction (Primary Dx) from Last 3 Months Social History Tobacco Use Types Packs/Day Years Used Date Smoking Tobacco: Never Assessed Comments Unknown Sex and Gender Information Value Date Recorded Sex Assigned at Female 12/08/2024 3:06 PM EDT Legal Sex Female 11:52 AM EDT Gender Identity Female 12/08/2024 3:06 PM EDT Sexual Orientation Not on file Last Filed Vital Signs Vital Sign Reading Time Taken Comments Blood Pressure 117/83 12/10/2024 3:49 PM EDT Pulse 84 12/10/2024 3:49 PM EDT Temperature 36.4 C (97.5 F) 12/10/2024 3:49 PM EDT Respiratory Rate - - Oxygen Saturation - - Inhaled Oxygen Concentration - - Weight 57.6 kg (127 lb) 12/10/2024 3:49 PM EDT Height 170.2 cm (5' 7 ) 12/10/2024 3:49 PM EDT Body Mass Index 19.89 12/10/2024 3:49 PM EDT Plan of Treatment Upcoming Encounters Date Type Department Care Team (Late st Contact Info) Description 06/10/2025 11:15 AM EDT Office Visit General Surgery [facility] [address] [phone] Jostin Kenyon MD [address] [place] [id number] Health Maintenance Due Date Last Done Comments Breast Cancer Screening 1970 Colorectal Cancer Screening: Colonoscopy 1970 Hepatitis B Vaccines (1 of 3 - 19+ 3-dose series) 1989 Cervical Cancer Screening: P ap Smear 1991 Pneumococcal Vaccine: 50+ Years (1 of 1 - PCV) 02/10/2020 Zoster Vaccines (1 of 2) 02/10/2020 Depression Screening 02/21/2024 COVID-19 Vaccine (4 - 2024-2 6 season) 2024 01/22/2021, 06/05/2020, 05/08/2020 Influenza Vaccine (#1) 2024 3, 03/07/2018 HIV Screening 11/22/2024 Hepatitis C Screening 11/22/2024 Social Influencers of Health Screening 11/22/2024 DTaP,Tdap,and Td Vaccines (2 - Td or Tdap) 02/20/2027 02/20/2017 RSV Immunization Adult Patients (1 - 1-dose 75+ series) 2045 HIB Vaccines Aged Out No longer eligi ble based on patient's age to complete this topic HPV Vaccines Aged Out No longer eligi ble based on patient's age to complete this topic Hepatitis A Vaccines Aged Out No long er eligible based on patient's age to complete this topic IPV Vaccines Aged Out No longer eligi ble based on patient's age to complete this topic MMR Vaccines Aged Out No longer eligi ble based on patient's age to complete this topic Meningococcal ACWY Vaccine Aged Out N o longer eligible based on patient's age to complete this topic Meningococcal B Vaccine Aged Out No l onger eligible based on patient's age to complete this topic RSV Immunization Patients Under 20 months Aged Out No longer eligible b ased on patient's age to complete this topic Varicella Vaccines Aged Out No longer eligible based on patient's age to complete this topic Insurance [facility] Care Teams Hotel Maintenance Engineer Relationship Specialty Start Date End Date Adelina Gunn PA [address] [place] [phone] PCP - General Physician Chief Safety Officer 11/22/24
[2025-01-20 20:44] LABS: Free T4 (Free Thyroxine) 0.96 ng/dL (0.71-1.85)
[2025-01-22 06:09] LABS: Class Cat Dander 2; E001 - IgE Cat Dander 0.87 kU/L
[2025-01-27 06:28] LABS: Vitamin D 25-OH, D2 <4 ng/mL; Vitamin D 25-OH, D3 50 ng/mL; Vitamin D 25-OH, Total 50 ng/mL (30-100)
== END 2025-01-20 13:42 | disposition home or self-care (01) ==
LOC: HO.WFDLDS 13:41
PROVIDERS: PCP Physician Assistant Medical; Visit Provider Physician Assistant Medical
DX: E06.3 Autoimmune thyroiditis (principal); L29.9 Pruritus, unspecified; E55.9 Vitamin D deficiency, unspecified; R55 Syncope and collapse
CPT/HCPCS: 36415; 82306; 84439; 84443; 86003